=== PATIENT | female | born 1955 | race Caucasian/White ===

== ENCOUNTER → 2016-06-01 | Outpatient (CLI) | payer BC ==
[2016-01-19 08:10] VITALS: BP 122/75
[~2016-06-01] MED LIST: ATOR20TA58 PO; CYAN10002 IM; FURO20TA3 PO; INSU100C4 SQ; LIRA0.6P2 SQ; LISI30TA4 PO; METF500T4 PO; METO-269 PO; ZOLP6.252 PO
== END | disposition home or self-care (01) ==
LOC: SPEC 17:04
PROVIDERS: ATTEND Podiatrist Foot & Ankle Surgery
DX: E11.42 Type 2 diabetes mellitus with diabetic polyneuropathy (principal)
CPT/HCPCS: 87070; 87205